=== PATIENT | female | born 1970 | race Caucasian/White ===

== ENCOUNTER 2016-07-20 13:44 | Emergency (ER) | payer OTHER ==
--- NOTE | ~2016-07-20 | CR2 ---
[facility] A Service of [facility] RADIOLOGY TEXT RESULTS PATIENT: GUILHERME LOMELI LOCATION: [facility] : 70 UNIT #: [id number] AGE: [address]: Roddy Pelaez MD SEX: F ORDER DR: [id number] [address] [id number] MR#: [id number] Acc #: [id number] NAME: GUILHERME LOMELI. : 1970 SEX: F STUDY DATE/TIME: 07/20/2016 13:07 UNIT: [facility] ROOM: STUDY DESCRIPTION: CR Abdomen Acute Series Attending Physician: Roddy Pelaez M.D. Ordering Physician: Roddy Pelaez M.D. Primary Care Physician: Zeinab Bee M.D. MEDICAL IMAGING REPORT This report is preliminary unless electronic signature is present EXAM Acute abdominal series 07/20/2016 COMPARISON None. HISTORY Nausea, abdominal pain and vomiting since this morning. Status post colonoscopy. FINDINGS Chest radiograph shows no acute disease. Bowel gas pattern is normal. There is moderate gas throughout the colon but no evidence of free air or bowel obstruction. IMPRESSION Negative acute abdominal series. No evidence of free intraperitoneal air, bowel obstruction or other acute abnormality. Dictated by... Randall Alexander M.D. THIS IS AN ELECTRONICALLY VERIFIED REPORT Randall Alexander M.D. at 07/21/2016 3:52 PM TEV/mjs TD: 07/20/2016 14:12 JOB #: [id number] MEDICAL IMAGING REPORT [facility] A Service of [facility] RADIOLOGY TEXT RESULTS PATIENT: GUILHERME LOMELI LOCATION: [facility] : 70 UNIT #: [id number] AGE: [address]: Roddy Pelaez MD SEX: F ORDER DR: Page 1 of 1 COPY
--- NOTE | ~2016-07-20 | CT2 ---
[facility] A Service of [facility] RADIOLOGY TEXT RESULTS PATIENT: GUILHERME LOMELI LOCATION: [facility] : 70 UNIT #: [id number] AGE: [address]: Roddy Pelaez MD SEX: F ORDER DR: [id number] [facility] [address] [place], [place] [address] [id number] E MR#: [id number] Acc #: [id number] NAME: GUILHERME LOMELI. : 1970 SEX: F STUDY DATE/TIME: 07/20/2016 15:07 UNIT: [facility] ROOM: STUDY DESCRIPTION: CT Abd and Pelv W Cont Attending Physician: Roddy Pelaez M.D. Ordering Physician: Roddy Pelaez M.D. Primary Care Physician: Zeinab Bee M.D. MEDICAL IMAGING REPORT This report is preliminary unless electronic signature is present EXAM CT abdomen and pelvis with contrast. INDICATION Colonoscopy this morning with extreme sharp stabbing pain since there. COMPARISON No comparison. TECHNIQUE The patient was given 100 mL of Isovue-370, and axial 5 mm images were obtained through the abdomen and pelvis with IV contrast only. NOTE: This CT exam was performed with one or more of the following radiation dose reduction techniques: automatic exposure control, adjustment of mA and/or kV according to patient size, and iterative reconstruction. FINDINGS Lung bases are clear. There is a lobular cyst in the left lobe of the liver measuring about 16 to 20 mm in size, and there is a 1 cm cyst in the right lobe of the liver. The gallbladder, spleen, pancreas, adrenal glands and kidneys are normal. The aorta is normal in size. There is no adenopathy. The uterus, adnexal regions and bladder are normal. There is no free air. There is no abnormality of the colon identified. There may be a trace amount of free fluid in the right side of the pelvis between the uterus and sacrum measuring about 2 x 1 cm in diameter. The bones are unremarkable. IMPRESSION 1. There is an oval area of water density material between the uterus and sacrum on the right side. This is likely a small amount of free fluid and in a patient of age 45, this could be physiologic and related to menstrual cycles. There is no evidence of free air or STS. [facility] A Service of [facility] RADIOLOGY TEXT RESULTS PATIENT: GUILHERME LOMELI LOCATION: [facility] : 70 UNIT #: [id number] AGE: [address]: Roddy Pelaez MD SEX: F ORDER DR: colonic perforation. 2. Hepatic cysts are present. 3. Otherwise, the study is normal. Dictated by... Ruiz Casey M.D. THIS IS AN ELECTRONICALLY VERIFIED REPORT Ruiz Casey M.D. at 07/21/2016 7:17 AM RAYNA/genaro TD: 07/20/2016 17:08 JOB #: [id number] MEDICAL IMAGING REPORT Page 1 of 1 COPY
[2016-07-20 13:31] LABS: BASOPHIL% 0.4 % (0-2.5); EOSINOPHIL% 0.4 % (0.0-7.0); HEMATOCRIT 41.4 % (35.0-45.0); HEMOGLOBIN 13.8 gm/dL (12.0-16.0); LYMPHOCYTE# 2.4 X10e3 (1.0-3.5); MEAN CELL VOLUME 90.4 FL (83-96); MEAN CORPUSCULAR HEMOGLOBIN 30.1 PG (28-34); MEAN CORPUSCULAR HGB CONC 33.3 g/dL (30-36); MEAN PLATELET VOLUME 8.6 FL (6.5-11.5); MONOCYTE# 0.4 X10e3 (0-1.0); MONOCYTE% 5.2 % (3.0-12.0); NEUTROPHIL# 4.1 X10e3 (1.5-7.1); PLATELET COUNT 189 X10e3 (140-420); RED BLOOD COUNT 4.59 X10e (3.90-5.30); RED CELL DISTRIBUTION WIDTH 12.5 % (11.0-15.5); WHITE BLOOD COUNT 6.9 X10e3 (4.0-10.5)
[2016-07-20 13:32] LABS: DIFF IND NO
[2016-07-20 13:58] LABS: ALBUMIN SERUM 4.2 g/dL (3.5-5.0); BILIRUBIN, DIRECT 0.1 mg/dL (0.0-0.2); BILIRUBIN,INDIRECT 0.5 mg/dL (0.0-0.9); BILIRUBIN,TOTAL 0.6 mg/dL (0.2-2.0); BUN/CREATININE RATIO 13.75; CREATININE SERUM 0.8 mg/dL (0.6-1.4); GLOM FILT RATE Estimated 89.1 mL/min (>60); POTASSIUM 3.1 mmol/L (3.5-5.1); PROTEIN TOTAL SERUM 7.1 g/dL (6.0-8.3)
== END 2016-07-20 15:59 | disposition home or self-care (01) ==
LOC: CED 13:44
PROVIDERS: Emergency Medicine
DX: R10.9 Unspecified abdominal pain (principal); E87.6 Hypokalemia; Z93.3 Colostomy status
CPT/HCPCS: 36415; 74022; 74177; 80048; 80076; 82150; 83690; 84703; 85025; 96374; 96375; 99284; J2270; J2405; Q9967